=== PATIENT | female | born 1995 | race Caucasian/White ===

== ENCOUNTER 2016-08-16 07:11 | Inpatient (IN) | payer MEDICAID ==
[2016-08-16] MEDS ORDERED: Sodium Chloride 0.9% 10 ML Syringe FLUSH PRN (07:19)
[2016-08-16] MEDS ORDERED: Lactated Ringers 1,000 ML IV SCH ×2 (07:30→08:28)
[2016-08-16] MEDS: Oxytocin/Normal Saline 10 UNIT/1,000 ML BAG IV SCH ×2 (08:03→20:27)
[2016-08-16] MEDS: Lactated Ringers 1,000 ML IV SCH ×2 (10:39→19:05)
--- NOTE | 2016-08-16 19:27 | PCM.LDHP ---
L&D History of Present Illness - General Date of Service: 08/16/16 Admit Problem/Dx: Patient Status Order with Admit Dx/Problem 08/16/16 07:19 Patient Status [ADT] Routine 08/16/16 19:01 Admission Status [Patient Status] [ADT] Routine Admission Diagnosis/Problem Admission Diagnosis/Problem Source of Information: Patient History Limitations: Reports: No Limitations - History of Present Illness Introduction:: 21 you with post erm ,here for induction Improves with: Reports: None Worsens with: Reports: None Associated Symptoms: Reports: N - Related Data Allergies/Adverse Reactions: Allergies Allergy/AdvReac Type Severity Reaction Status Date / Time No Known Allergies Allergy Verified 01/11/16 17:17 Home Medications: Home Meds Multivitamin with Minerals [Multiple Vitamin] 1 each PO DAILY 08/16/16 [History] Past Medical History Other Genitourinary History: states has a kidney concern [employer]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: , Other (See Below) Other OB/BYN History: bicornate uterus - Past Surgical History GI Surgical History: Reports: Appendectomy Other GI Surgeries/Procedures: appy at age 10 Social & Family History - Family History Family Medical History: Noncontributory - Tobacco Use Smoking Status *Q: Former Smoker Years of Tobacco use: 5 Packs/Tins Daily: 1 Used Tobacco, but Quit: Yes Month Tobacco Last Used: 12/01 Second Hand Smoke Exposure: No - Caffeine Use Caffeine Use: Reports: Soda - Recreational Drug Use Recreational Drug Use: No H&P Review of Systems - Review of Systems: Review Of Systems: See Below General: Reports: No Symptoms HEENT: Reports: No Symptoms Pulmonary: Reports: No Symptoms Cardiovascular: Reports: No Symptoms Gastrointestinal: Reports: No Symptoms Genitourinary: Reports: No Symptoms Musculoskeletal: Reports: No Symptoms Skin: Reports: No Symptoms Psychiatric: Reports: No Symptoms Neurological: Reports: No Symptoms Hematologic/Lymphatic: Reports: No Symptoms Immunologic: Reports: No Symptoms L&D Exam - Exam Exam: See Below - Vital Signs Vital Signs: Last Vital Signs Temp 98 F 08/16/16 16:43 Pulse 83 08/16/16 16:43 Resp 18 08/16/16 16:43 BP 120/72 08/16/16 16:43 Pulse Ox 98 08/16/16 16:43 Weight: 76.204 kg - OB Specific Contraction Duration (sec): 60-90 Contraction Frequency (min): 1-3 Contraction Intensity: Mild to Moderate - Miller Score Miller Score Cervix Position: Posterior Miller Score Consistency: Soft Miller Score Dilation: 1-2 cm Miller Score Infant's Station: -2 - Exam Quality Assessment: No: Supplemental Oxygen General: Alert, Oriented, Cooperative HEENT: PERRLA, Conjunctiva Clear Neck: Supple Lungs: Clear to Auscultation Cardiovascular: Regular Rate, Regular Rhythm Abdomen: Normal Bowel Sounds, Distention Rectal Exam: Normal Exam, Normal Rectal Tone Genitourinary: Normal external exam Back Exam: Normal Inspection Extremities: Normal Inspection Skin: Warm Neurological: Cranial Nerves Intact Psychiatric: Alert - Patient Data Lab Results last 24 hrs: Laboratory Results - last 24 hr 08/16/16 Range/Units 08:35 WBC 7.4 (4.5-12.0) X10-3/uL RBC 3.90 (3.23-5.20) x10(6)uL Hgb 11.1 L (11.5-15.5) g/dL Hct 33.7 (30.0-51.3) % MCV 86.5 (80-96) fL MCH 28.4 (27.7-33.6) pg MCHC 32.8 (32.2-35.4) g/dL RDW 13.0 (11.5-15.5) % Plt Count 208 (125-369) X10(3)uL Result Diagrams: 08/16/16 08:35 - Problem List (1) Elective induction of labor planned SNOMED Code(s): 000500583 ICD Code: [id number] - Status: Acute Current Visit: Yes (2) Bicornuate uterus SNOMED Code(s): 35185287 ICD Code: Q51.3 - BICORNATE UTERUS Status: Acute Current Visit: Yes (3) 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 , antepartum SNOMED Code(s): 456855307, 444642583, 582322942, 076630638 ICD Code: O35.8XX0 - MATERNAL CARE FOR OTH ABNORMALITY AND DAMAGE, UNSP Status: Acute Current Visit: Yes (4) Post term SNOMED Code(s): 63529337 ICD Code: O48.0 - POST-TERM Status: Acute Current Visit: Yes Qualifiers: Post-term type: 40-42 weeks gestation Qualified Code(s): O48.0 - Post-term Problem List Initiated/Reviewed/Updated: Yes Orders Last 24hrs: Active Orders 24 hr Category Date Time Status Admission Status [Patient Status] [ADT] Routine ADT 08/16/16 19:01 Active Communication Order [RC] ASDIRECTED Care 08/16/16 07:19 Active Notify Provider Vital Signs [RC] PRN Care 08/16/16 07:21 Active Notify Provider [RC] PRN Care 08/16/16 07:19 Active Vital Signs [RC] PER UNIT ROUTINE Care 08/16/16 07:19 Active Lactated Ringers [Ringers, Lactated] 1,000 ml Med 08/16/16 08:28 Active IV ASDIRECTED Lactated Ringers [Ringers, Lactated] 1,000 ml Med 08/16/16 10:22 Active IV ASDIRECTED Oxytocin/Normal Saline [Pitocin in NS 10 UNITS/1,000 ML Med 08/16/16 07:30 Active ] 10 unit in 1,000 ml IV TITRATE Sodium Chloride 0.9% [Saline Flush] Med 08/16/16 07:19 Active 10 ml FLUSH ASDIRECTED PRN Electronic Heart Tones Ext w TOCO [WOMSER] Oth 08/16/16 07:30 Ordered CONTINUOUS Saline Lock Insert [OM.PC] Routine Oth 08/16/16 07:19 Ordered Resuscitation Status Routine Resus Stat 08/16/16 07:19 Ordered Medication Orders Oxytocin/Sodium Chloride (Pitocin In Ns 10 Units/1,000 Ml) 10 unit in 1,000 mls @ 12 mls/hr IV TITRATE DENNIS; 2 MUNITS/MIN PRN Reason: Protocol Last Titration: 08/16/16 15:00 Dose: 18 munits/min, 108 mls/hr Titration: 08/16/16 13:33 Dose: 16 munits/min, 96 mls/hr Titration: 08/16/16 12:45 Dose: 14 munits/min, 84 mls/hr Titration: 08/16/16 11:36 Dose: 12 munits/min, 72 mls/hr Titration: 08/16/16 11:06 Dose: 10 munits/min, 60 mls/hr Titration: 08/16/16 10:38 Dose: 8 munits/min, 48 mls/hr Titration: 08/16/16 10:18 Dose: 7 munits/min, 42 mls/hr Titration: 08/16/16 10:05 Dose: 8 munits/min, 48 mls/hr Titration: 08/16/16 09:04 Dose: 6 munits/min, 36 mls/hr Titration: 08/16/16 08:30 Dose: 4 munits/min, 24 mls/hr Admin: 08/16/16 08:03 Dose: 2 munits/min, 12 mls/hr Lactated Ringer's (Ringers, Lactated) 1,000 mls @ 500 mls/hr IV ASDIRECTED DENNIS Last Admin: 08/16/16 08:30 Dose: 500 mls/hr Lactated Ringer's (Ringers, Lactated) 1,000 mls @ 150 mls/hr IV ASDIRECTED DENNIS Last Admin: 08/16/16 19:05 Dose: 150 mls/hr Infusion: 08/16/16 17:20 Dose: 150 mls/hr Admin: 08/16/16 10:39 Dose: 150 mls/hr Sodium Chloride (Saline Flush) 10 ml FLUSH ASDIRECTED PRN PRN Reason: Keep Vein Open Last Admin: 08/16/16 08:12 Dose: 10 ml
[2016-08-16] MEDS ORDERED: Calcium Carbonate 500 MG Tab.Chew PO PRN (21:34)
[2016-08-17] MEDS ORDERED: fentaNYL 300 MCG in Ropivacaine 200 ML IV ONE (02:00)
[2016-08-17] MEDS ORDERED: fentaNYL 100 MCG/2 ML SDV EPIDUR ONE (02:00)
[2016-08-17] MEDS: Lactated Ringers 1,000 ML IV SCH (03:14)
[2016-08-17] MEDS ORDERED: Naloxone 0.4 MG/ML SDV IVPUSH PRN (03:33)
[2016-08-17] MEDS ORDERED: Naloxone 0.4 MG in Sodium Chloride 0.9% 100 ML IV PRN (03:33)
[2016-08-17] MEDS ORDERED: Promethazine 25 MG/ML SDV IV PRN (03:33)
[2016-08-17] MEDS ORDERED: ePHEDrine 50 MG/ML SDV IVPUSH PRN (03:33)
[2016-08-17] MEDS ORDERED: diphenhydrAMINE 50 MG/ML SDV IVPUSH PRN (03:33)
[2016-08-17] MEDS ORDERED: Metoclopramide 10 MG/2 ML SDV IVPUSH PRN (03:33)
[2016-08-17] MEDS ORDERED: hydrOXYzine HCl 50 MG/ML SDV IM PRN ×2 (03:34→03:35)
[2016-08-17] MEDS ORDERED: Ondansetron 4 MG/2 ML SDV IVPUSH PRN (03:35)
[2016-08-17] MEDS ORDERED: Oxytocin 10 Units/1 ML SDV IV ONE (08:45)
[2016-08-17] MEDS ORDERED: Misoprostol 200 MCG Tab RECTAL ONE (09:15)
[2016-08-17] MEDS ORDERED: Docusate Sodium 100 MG Cap PO PRN (09:21)
[2016-08-17] MEDS ORDERED: Witch Hazel Medicated Pads 40/Jar TOP PRN (09:21)
[2016-08-17] MEDS ORDERED: Ibuprofen 600 MG Tab PO PRN (09:21)
[2016-08-18 07:42] VITALS: BP 120/60
--- NOTE | 2016-08-18 09:05 | PCM.PNPP ---
- General Info Date of Service: 08/18/16 Admission Dx/Problem (Free Text): Patient Status Order with Admit Dx/Problem 08/16/16 07:19 Patient Status [ADT] Routine 08/16/16 19:01 Admission Status [Patient Status] [ADT] Routine Admission Diagnosis/Problem Admission Diagnosis/Problem Functional Status: Reports: pain controlled - Review of Systems General: Reports: No Symptoms HEENT: Reports: no symptoms Pulmonary: Reports: no symptoms Cardiovascular: Reports: No Symptoms Gastrointestinal: Reports: No symptoms Genitourinary: Reports: no symptoms Musculoskeletal: Reports: no symptoms Skin: Reports: no symptoms Neurological: Reports: No Symptoms Psychiatric: Reports: no symptoms - General Info Date of Service: 08/18/16 - Patient Data Vital Signs - most recent: Last Vital Signs Temp 98 F 08/18/16 07:40 Pulse 73 08/18/16 07:40 Resp 18 08/18/16 07:40 BP 120/60 08/18/16 07:40 Pulse Ox 99 08/18/16 07:40 Weight - most recent: 76.204 kg I&O - last 24 hours: Intake & Output 08/17/16 08/18/16 08/18/16 22:59 06:59 14:59 Intake Total 600 1000 Balance 600 1000 Lab Results - last 24 hrs: Laboratory Results - last 24 hr 08/18/16 Range/Units 06:25 WBC 10.8 (4.5-12.0) X10-3/uL RBC 3.48 (3.23-5.20) x10(6)uL Hgb 9.9 L (11.5-15.5) g/dL Hct 30.3 (30.0-51.3) % MCV 87.1 (80-96) fL MCH 28.6 (27.7-33.6) pg MCHC 32.8 (32.2-35.4) g/dL RDW 13.1 (11.5-15.5) % Plt Count 163 (125-369) X10(3)uL MPV 7.6 (7.4-10.4) fL Neut % (Auto) 68.7 (46-82) % Lymph % (Auto) 24.1 (13-37) % Zavala % (Auto) 6.1 (4-12) % Eos % (Auto) 1 (1.0-5.0) % Baso % (Auto) 0 (0-2) % Neut # (Auto) 7.4 (1.6-8.3) # Lymph # (Auto) 2.6 (0.6-5.0) # Zavala # (Auto) 0.7 (0.0-1.3) # Eos # (Auto) 0.1 (0.0-0.8) # Baso # (Auto) 0.0 (0.0-0.2) # Med Orders - Current: Current Medications Calcium Carbonate/Glycine (Tums) 500 mg PO Q2H PRN PRN Reason: Indigestion Last Admin: 08/16/16 21:46 Dose: 500 mg Docusate Sodium (Colace) 100 mg PO BID PRN PRN Reason: Constipation Oxytocin/Sodium Chloride (Pitocin In Ns 10 Units/1,000 Ml) 10 unit in 1,000 mls @ 12 mls/hr IV TITRATE DENNIS; 2 MUNITS/MIN PRN Reason: Protocol Last Titration: 08/17/16 05:00 Dose: 14 munits/min, 84 mls/hr Lactated Ringer's (Ringers, Lactated) 1,000 mls @ 150 mls/hr IV ASDIRECTED DENNIS Last Admin: 08/17/16 03:14 Dose: 150 mls/hr Ibuprofen (Motrin) 600 mg PO Q4H PRN PRN Reason: Pain Metoclopramide HCl (Reglan) 10 mg IVPUSH Q6H PRN PRN Reason: N/V Ondansetron HCl (Zofran) 4 mg IVPUSH Q6H PRN PRN Reason: Nausea/Vomiting Last Admin: 08/17/16 09:31 Dose: 4 mg Sodium Chloride (Saline Flush) 10 ml FLUSH ASDIRECTED PRN PRN Reason: Keep Vein Open Last Admin: 08/16/16 08:12 Dose: 10 ml Witch Christel (Tucks) 1 pad TOP ASDIRECTED PRN PRN Reason: Hemorrhoids Discontinued Medications Diphenhydramine HCl (Benadryl) 25 mg IVPUSH ASDIRECTED PRN PRN Reason: PRURITUS Ephedrine Sulfate (Ephedrine Sulfate) 5 mg IVPUSH ASDIRECTED PRN PRN Reason: HYPOTENSION Fentanyl (Sublimaze) 100 mcg EPIDUR .STK-MED ONE Stop: 08/17/16 02:01 Hydroxyzine HCl (Vistaril) 0 mg IM Q6H PRN PRN Reason: Itching Hydroxyzine HCl (Vistaril) 0 mg IM Q4H PRN PRN Reason: Nausea/Vomiting Lactated Ringer's (Ringers, Lactated) 1,000 mls @ 125 mls/hr IV ASDIRECTED DENNIS Last Admin: 08/16/16 08:02 Dose: 125 mls/hr Lactated Ringer's (Ringers, Lactated) 1,000 mls @ 500 mls/hr IV ASDIRECTED DENNIS Stop: 08/16/16 10:40 Last Admin: 08/16/16 08:30 Dose: 500 mls/hr Naloxone HCl 0.4 mg/ Sodium (Chloride) 101 mls @ 25 mls/hr IV ASDIRECTED PRN PRN Reason: PER ORDER OF ANESTHESIA Fentanyl 300 mcg/ Ropivacaine 206 mls @ as directed IV .STK-MED ONE Stop: 08/17/16 02:01 Misoprostol (Cytotec) 800 mcg RECTAL ONETIME ONE Stop: 08/17/16 09:16 Last Admin: 08/17/16 09:11 Dose: 800 mcg Naloxone HCl (Narcan) 0.1 mg IVPUSH ASDIRECTED PRN PRN Reason: RESPIRATORY STATUS Oxytocin (Pitocin) 10 unit IV ONETIME ONE Stop: 08/17/16 08:46 Last Admin: 08/17/16 08:57 Dose: 10 unit Promethazine HCl (Phenergan) 6.25 - 12.5 mg IV Q4H PRN PRN Reason: NAUSEA AND VOMITING - Infant Interaction Support Person: Sister, Significant Other, Other (see below) - Recovery Exam Fundal Tone: Firm Fundal Level: At Umbilicus Fundal Placement: Midline Lochia Amount: Moderate Lochia Color: Rubra/Red Perineum Description: Intact, Minimal Bruising/Swelling Episiotomy/Laceration: None Bladder Status: Voiding Urinary Elimination: Voided - Exam General: alert, oriented HEENT: Pupils equal Neck: supple Lungs: Clear to auscultation, Normal respiratory effort Cardiovascular: Regular Rate, Regular Rhythm Abdomen: bowel sounds present, soft, no tenderness, no distension Extremities: no edema Skin: warm, dry, intact Wound/Incisions: healing well Neurological: no new focal deficit Psy/Mental Status: alert, normal affect, normal mood - Problem List & Annotations (1) Elective induction of labor planned SNOMED Code(s): 861483571 Code(s): SYB1799 - Status: Acute Current Visit: Yes (2) Bicornuate uterus SNOMED Code(s): 91270330 Code(s): Q51.3 - BICORNATE UTERUS Status: Acute Current Visit: Yes (3) 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 , antepartum SNOMED Code(s): 106790772, 269265462, 113764426, 773644762 Code(s): O35.8XX0 - MATERNAL CARE FOR OTH ABNORMALITY AND DAMAGE, UNSP Status: Acute Current Visit: Yes (4) Post term SNOMED Code(s): 58326888 Code(s): O48.0 - POST-TERM Status: Acute Current Visit: Yes Qualifiers: Post-term type: 40-42 weeks gestation Qualified Code(s): O48.0 - Post-term (5) Delivery normal SNOMED Code(s): 94207909 Code(s): O80 - ENCOUNTER FOR FULL-TERM UNCOMPLICATED DELIVERY; Z37.9 - OUTCOME OF DELIVERY, UNSPECIFIED Status: Acute Current Visit: Yes - Problem List Review Problem List Initiated/Reviewed/Updated: Yes - My Orders Last 24 Hours: My Active Orders 08/17/16 09:21 Up ad Vianney [RC] ASDIRECTED Docusate Sodium [Colace] 100 mg PO BID PRN Ibuprofen [Motrin] 600 mg PO Q4H PRN Witch Christel [Tucks] 1 pad TOP ASDIRECTED PRN Assess Lochia [WOMSER] Per Unit Routine Assess Uterine Involution [WOMSER] Per Unit Routine Breast Pump [WOMSER] Per Unit Routine Ice Therapy [OM.PC] Per Unit Routine Perineal Care [OM.PC] Per Unit Routine Sitz Bath [OM.PC] Per Unit Routine - Plan Plan:: Patient doing well.Wants to go home today. DC home foloow up in 6 weeks
--- NOTE | 2016-08-20 09:54 | DEL ---
DATE OF DELIVERY: 08/17/2016 PROCEDURE: Vaginal delivery, spontaneous, vertex. DESCRIPTION OF PROCEDURE: The patient was noted to be complete at about 0830 hours. She started pushing after the epidural was shut off. She pushed effectively and delivered a live female infant weighing 6 pounds 3 ounces with scores of 9 and 9. The baby's head delivered and the rest of the baby was delivered, put skin to skin on the maternal chest. Cord delaying was performed for about 60 seconds and the baby handed over to the waiting nurses. The face was gently wiped from mucus. There was superficial periurethral laceration that did not need any repair. The placenta delivered shortly afterwards with traction. There was noted to be brisk bright red bleeding from the vagina. With the bimanual massage and Pitocin, it continued. I therefore used 800 mcg of Cytotec rectally to achieve hemostasis. IMPRESSION: 1. Spontaneous vaginal delivery, vertex. 2. hemorrhage. PLAN: Continue with Pitocin and a bolus of normal saline. Repeat CBC in the morning and routine orders. /[id number] CORINNE/MAICO
--- NOTE | 2016-08-20 09:54 | DISCH ---
DISCHARGE DATE: 08/18/2016 REASON FOR ADMISSION: 1. Induction of labor. 2. Postterm . 3. Bicornuate uterus. DISCHARGE DIAGNOSES: 1. Delivery, normal. 2. Mild hemorrhage. CONSULTATIONS: None. BRIEF HISTORY AND HOSPITAL COURSE: A 21-year-old female, a primigravida, who presented at term 41 weeks for induction of labor. This was achieved through Pitocin. She delivered on 08/17/2016, a live female infant. She wishes to go home early and her blood pressure and vital signs are normal. Hemoglobin only down to 9.9. FOLLOWUP: I discharged her home today to follow up in the office in 6 weeks. Continue with multivitamins, ibuprofen p.r.n. for pain. I spent 35 minutes in the discharge of the patient. /[id number] CORINNE/MAICO
== END 2016-08-18 10:45 | disposition home or self-care (01) | DRG 774 ==
LOC: UNDOADMOB 07:11 → FB.OB 07:11 → OBSVTOIN 19:01 → INTOOBSV 19:01 → OBSVTOIN 08-17 09:04 → FB.OB 08-17 09:04 → UNDODISIN 08-18 10:45
PROVIDERS: ADMIT Family Medicine; ATTEND Family Medicine
PROC: 10E0XZZ Delivery of Products of Conception, External Approach (ICD-10-PCS; principal; 2016-08-16)
PROC: 3E033VJ Introduction of Other Hormone into Peripheral Vein, Percutaneous Approach (ICD-10-PCS; 2016-08-16)
PROC: 00HU33Z Insertion of Infusion Device into Spinal Canal, Percutaneous Approach (ICD-10-PCS; 2016-08-16)
DX: O48.0 Post-term pregnancy (principal); O72.1 Other immediate postpartum hemorrhage; Z37.0 Single live birth; Z3A.40 40 weeks gestation of pregnancy; O35.8XX0 Maternal care for other (suspected) fetal abnormality and damage, not applicable or unspecified; Q51.3 Bicornate uterus; Z87.891 Personal history of nicotine dependence
CPT/HCPCS: 36415; 85025; 85027; A4217; A9270-GY; J2405; J2590; J2795; J3010; J7050; J7120

== ENCOUNTER 2016-08-21 21:15 | Emergency (ER) | payer MEDICAID ==
[2016-08-21 21:33] VITALS: BP 124/72
--- NOTE | 2016-08-21 21:45 | EDM.PDOC ---
ED HPI GENERAL MEDICAL PROBLEM - General Chief Complaint: General Stated Complaint: ALLERGIC REACTION Time Seen by Provider: 08/21/16 21:30 Source of Information: Reports: Patient, Family History Limitations: Reports: No Limitations - History of Present Illness INITIAL COMMENTS - FREE TEXT/NARRATIVE: Elena is 5 days post , and developed urticaria today. The rash was limited to the upper torso, neck and face, and she was seen by her PCP who prescribed Benadryl and Prednisone for sx relief. This evening, she now seems to have additional lesions of the lower torso and upper thighs. There is no facial swelling, oral swelling, stridor, wheezing or lt headiness. 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: , Other (See Below) Other OB/BYN History: bicornate uterus - Past Surgical History GI Surgical History: Reports: Appendectomy Other GI Surgeries/Procedures: appy at age 10 Social & Family History - Family History Family Medical History: Noncontributory - Tobacco Use Smoking Status *Q: Former Smoker Years of Tobacco use: 5 Packs/Tins Daily: 1 Used Tobacco, but Quit: Yes Month Tobacco Last Used: 12/01 Second Hand Smoke Exposure: No - Caffeine Use Caffeine Use: Reports: Soda - Recreational Drug Use Recreational Drug Use: No ED ROS GENERAL - Review of Systems Review Of Systems: See Below Constitutional: Reports: No Symptoms HEENT: Reports: No Symptoms Respiratory: Reports: No Symptoms Cardiovascular: Reports: No Symptoms Endocrine: Reports: No Symptoms GI/Abdominal: Reports: No Symptoms : Reports: No Symptoms Musculoskeletal: Reports: No Symptoms Skin: Reports: Pruritis, Urticaria Neurological: Reports: No Symptoms Psychiatric: Reports: No Symptoms Hematologic/Lymphatic: Reports: No Symptoms Immunologic: Reports: No Symptoms ED EXAM, GENERAL - Physical Exam Exam: See Below Exam Limited By: No Limitations General Appearance: Alert, WD/WN, No Apparent Distress Eye Exam: Bilateral Eye: Normal Inspection, PERRL Ears: Normal External Exam, Normal TMs Nose: Normal Inspection, Normal Mucosa Throat/Mouth: Normal Inspection, Normal Lips, Normal Teeth, Normal Gums, Normal Oropharynx, Normal Voice, No Airway Compromise Head: Normocephalic Neck: Normal Inspection, Supple, Non-Tender, Full Range of Motion Respiratory/Chest: Lungs Clear, Normal Breath Sounds, No Accessory Muscle Use, Chest Non-Tender Cardiovascular: Regular Rate, Rhythm, No Murmur GI/Abdominal: Normal Bowel Sounds, Soft, Non-Tender (Female) Exam: Deferred Rectal (Female) Exam: Deferred Back Exam: Normal Inspection, Full Range of Motion Extremities: Normal Inspection Neurological: Alert, Oriented, CN II-XII Intact, Normal Gait, No Motor/Sensory Deficits Psychiatric: Normal Affect, Normal Mood Skin Exam: Warm, Dry, Other (urticarial lesions confined to the face, neck, upper and lower torso, UE and LE to the upper thighs) Lymphatic: No Adenopathy Course - Vital Signs Text/Narrative:: Elena remained stable at the [facility] ED. No meds were administered. Last Recorded V/S: Last Vital Signs Temp 36.6 C 08/21/16 21:30 Pulse 96 08/21/16 21:30 Resp 20 08/21/16 21:30 BP 124/72 08/21/16 21:30 Pulse Ox 98 08/21/16 21:30 Departure - Departure Time of Disposition: 21:45 Disposition: Home, Self-Care 01 Condition: good Clinical Impression: Urticaria - Discharge Information Forms: ED Department Discharge - Problem List & Annotations (1) Urticaria SNOMED Code(s): 938101064 Code(s): L50.9 - URTICARIA, UNSPECIFIED Status: Acute Current Visit: Yes Annotation/Comment:: I advised Elena to continue Prednisone and Benedryl as directed by PCP. - Problem List Review Problem List Initiated/Reviewed/Updated: Yes - Assessment/Plan Plan: Follow up with PCP if needed.
== END 2016-08-21 21:35 | disposition home or self-care (01) ==
LOC: FB.ED 21:15
DX: L50.9 Urticaria, unspecified (principal); Z79.899 Other long term (current) drug therapy; Z90.49 Acquired absence of other specified parts of digestive tract; Z87.891 Personal history of nicotine dependence
CPT/HCPCS: 99282

== ENCOUNTER 2021-07-24 20:19 | Emergency (ER) | payer BC, OTHER ==
[2021-07-24] MEDS ORDERED: Levofloxacin/Dextrose 5%-Water 750 MG in Premix Bag 1 BAG IV STA (21:19)
[2021-07-24] MEDS ORDERED: Sodium Chloride 0.9% 10 ML Syringe FLUSH PRN (21:19)
[2021-07-24] MEDS ORDERED: Sodium Chloride 0.9% 1,000 ML IV SCH (21:30)
[2021-07-24] MEDS ORDERED: Levofloxacin 750 MG Tab PO STA (21:44)
[2021-07-24] MEDS ORDERED: Acetaminophen 500 MG Tab PO ONE (21:44)
[2021-07-24 23:27] VITALS: BP 107/69; PULSE 107
== END 2021-07-24 21:55 | disposition home or self-care (01) ==
LOC: FB.ED 20:19
DX: N12 Tubulo-interstitial nephritis, not specified as acute or chronic (principal); E87.1 Hypo-osmolality and hyponatremia
CPT/HCPCS: 36415; 80048; 81001; 85025; 99282; 99284; A9270-GY

== ENCOUNTER 2021-12-14 23:57 | Emergency (ER) | payer SELFPAY ==
[2021-12-14] MEDS ORDERED: Ondansetron 4 MG Tab.DIS PO ONE (23:58)
[2021-12-15] MEDS ORDERED: Ketorolac 30 MG/ML SDV IM ONE (00:23)
[2021-12-15] MEDS ORDERED: Ondansetron 4 MG Tab.DIS PO ONE (00:23)
[2021-12-15 02:03] VITALS: BP 103/75; PULSE 69
== END 2021-12-15 01:20 | disposition home or self-care (01) ==
LOC: FB.ED 23:57
DX: R10.9 Unspecified abdominal pain (principal); Z90.49 Acquired absence of other specified parts of digestive tract
CPT/HCPCS: 81001; 96372; 99282; 99284; J1885; Q0162

== ENCOUNTER 2022-05-04 16:52 | Emergency (ER) | payer SELFPAY ==
[2022-05-04] MEDS ORDERED: Ketorolac 30 MG/ML SDV IM ONE (17:22)
[2022-05-04] MEDS ORDERED: Sodium Chloride 0.9% 1,000 ML IV ONE (17:25)
[2022-05-04] MEDS ORDERED: Ketorolac 30 MG/ML SDV IVPUSH ONE (17:25)
[2022-05-04] MEDS ORDERED: cefTRIAXone 2 GM Vial IVPUSH ONE (17:26)
[2022-05-04] MEDS ORDERED: cefTRIAXone 1 GM in Sodium Chloride 0.9% 50 ML IV ONE (17:42)
[2022-05-04 17:50] LABS: ESTIMATED GFR 58 mL/min (>60)
[2022-05-04 19:22] VITALS: BP 115/67; PULSE 57
== END 2022-05-04 19:05 | disposition home or self-care (01) ==
LOC: FB.ED 16:52
DX: N12 Tubulo-interstitial nephritis, not specified as acute or chronic (principal); N18.9 Chronic kidney disease, unspecified; N26.1 Atrophy of kidney (terminal)
CPT/HCPCS: 36415; 80053; 81001; 85025; 86140; 87086; 87088; 87186; 96361; 96374; 96375; 99284-25; J0696; J1885; J7030